=== PATIENT | male | born 1980 | race Caucasian/White ===

== ENCOUNTER 2022-09-29 11:51 | Outpatient (CLI) | payer BC, SELFPAY ==
[2022-09-29 12:39] LABS: Alanine Aminotransferase 48 U/L (16-63); Albumin Level 4.7 g/dL (3.4-5.0); Alkaline Phosphatase 49 U/L (46-116); Aspartate Amino Transferase 19 U/L (15-37); Bilirubin Direct 0.1 mg/dL (0-0.2); Bilirubin,Total 0.4 mg/dL (0.00-1.00); Total Protein 8.1 g/dL (6.4-8.2)
== END 2022-09-29 11:52 | disposition home or self-care (01) ==
LOC: CHSLAB 11:57
PROVIDERS: PCP Family Medicine
DX: Z79.899 Other long term (current) drug therapy (principal)
CPT/HCPCS: 36415; 80076

== ENCOUNTER 2022-11-27 10:12 | Outpatient (CLI) | payer BC, SELFPAY ==
[2022-11-27 10:57] LABS: Alanine Aminotransferase 36 U/L (16-63); Albumin Level 4.2 g/dL (3.4-5.0); Alkaline Phosphatase 67 U/L (46-116); Aspartate Amino Transferase 13 U/L (15-37); Bilirubin Direct 0.1 mg/dL (0-0.2); Bilirubin,Total 0.4 mg/dL (0.00-1.00); Total Protein 7.7 g/dL (6.4-8.2)
== END 2022-11-27 10:13 | disposition home or self-care (01) ==
DX: Z79.899 Other long term (current) drug therapy (principal)
CPT/HCPCS: 36415; 80076

== ENCOUNTER 2022-12-29 09:21 | Outpatient (CLI) | payer BC, SELFPAY ==
[2022-12-29 10:26] LABS: Alanine Aminotransferase 39 U/L (16-63); Albumin Level 4.2 g/dL (3.4-5.0); Alkaline Phosphatase 70 U/L (46-116); Aspartate Amino Transferase 14 U/L (15-37); Bilirubin Direct 0.1 mg/dL (0-0.2); Bilirubin,Total 0.5 mg/dL (0.00-1.00); Total Protein 7.5 g/dL (6.4-8.2)
== END 2022-12-29 09:22 | disposition home or self-care (01) ==
LOC: CHSLAB 09:25
DX: Z79.899 Other long term (current) drug therapy (principal)
CPT/HCPCS: 36415; 80076

== ENCOUNTER 2023-04-30 10:01 | Outpatient (CLI) | payer BC, SELFPAY ==
[2023-04-30 10:26] LABS: Creatinine Urine 24.47 mg/dL (40-278); Hemoglobin A1C 5.2 % (<5.7)
[2023-04-30 10:36] LABS: MALB Creatinine Ratio 53.1 mg/g (0-30); Microalbumin Urine Random < 13.0 mg/L
[2023-04-30 11:15] LABS: Alanine Aminotransferase 37 U/L (16-63); Albumin Level 4.2 g/dL (3.4-5.0); Alkaline Phosphatase 45 U/L (46-116); Anion Gap 9 mmol/L (8-16); Aspartate Amino Transferase 17 U/L (15-37); Bilirubin,Total 0.5 mg/dL (0.00-1.00); Blood Urea Nitrogen 14 mg/dL (7-18); Calcium 9.3 mg/dL (8.5-10.1); Carbon Dioxide 30 mmol/L (21-32); Chloride 105 mmol/L (98-108); Cholesterol 196 mg/dL (0-200); Estimated Glomerular Filt Rate > 60; Glucose 85 mg/dL (70-99); HDL Direct 43 mg/dL (40-60); LDL Cholesterol Calculated 114 mg/dL (<130); Osmolality Calculated 297 mOsm/kg (285-295); Potassium 4.4 mmol/L (3.5-5.1); Sodium 144 mmol/L (136-145); Total Protein 7.6 g/dL (6.4-8.2); Triglycerides 196 mg/dL (0-150); Uric Acid 4.8 mg/dL (3.5-7.2)
[2023-05-04 13:40] LABS: Valproic Acid 73.7 mg/L (50.0-100.0)
== END 2023-04-30 10:02 | disposition home or self-care (01) ==
LOC: CHSLAB 10:04
PROVIDERS: PCP Family Medicine; Visit Provider Family Medicine
DX: M10.9 Gout, unspecified (principal); G40.909 Epilepsy, unspecified, not intractable, without status epilepticus; E11.9 Type 2 diabetes mellitus without complications
CPT/HCPCS: 36415; 80053; 80061; 80164; 82043; 83036; 84550

== ENCOUNTER 2024-08-01 13:33 | Outpatient (CLI) | payer BC, SELFPAY ==
[2024-08-01 13:52] LABS: Basophils Absolute Auto 0.03 K/mm3 (0.00-0.10); Basophils Percent Auto 0.4 % (0.0-1.0); Eosinophils Absolute Auto 0.03 K/mm3 (0.02-0.50); Eosinophils Percent Auto 0.4 % (1.0-6.0); Hemoglobin 16.1 g/dL (14.0-18.0); Immature Granulocyte Absolute 0.03 K/mm3 (0.00-0.00); Immature Granulocyte Percent A 0.4 % (0.0-0.0); Lymphocytes Percent Auto 34.5 % (18.0-42.0); Mean Corpuscular HGB Conc 33.5 g/dL (32-36); Mean Corpuscular Hemoglobin 29.4 pg (27.0-31.0); Mean Corpuscular Volume 87.8 fL (78.0-102.0); Monocytes Percent Auto 7.5 % (2.0-11.0); Neutrophils Absolute Auto 3.78 K/mm3 (1.70-7.20); Neutrophils Percent Auto 56.8 % (50.0-70.0); Platelet Count Result 188 K/mm3 (150-420); Red Blood Count 5.47 M/mm3 (4.70-6.10); White Blood Count 6.7 K/mm3 (4.8-10.8)
[2024-08-01 14:28] LABS: Rheumatoid Factor Screen Negative (Negative)
[2024-08-01 14:51] LABS: Erythrocyte Sedimentation Rate 2 mm/hr (0-15)
[2024-08-01 14:57] LABS: Alanine Aminotransferase 41 U/L (16-63); Albumin Level 4.3 g/dL (3.4-5.0); Alkaline Phosphatase 46 U/L (46-116); Anion Gap 6 mmol/L (4-12); Aspartate Amino Transferase 16 U/L (15-37); Bilirubin,Total 0.7 mg/dL (0.00-1.00); Blood Urea Nitrogen 15 mg/dL (7-18); Calcium 9.4 mg/dL (8.5-10.1); Carbon Dioxide 33 mmol/L (21-32); Chloride 102 mmol/L (98-108); Cholesterol 234 mg/dL (0-200); Estimated Glomerular Filt Rate > 60; Free T4 Free Thyroxine 0.81 ng/dL (0.76-1.46); Glucose 133 mg/dL (70-99); HDL Direct 46 mg/dL (40-60); LDL Cholesterol Calculated 166 mg/dL (<130); Osmolality Calculated 294 mOsm/kg (285-295); Potassium 4.6 mmol/L (3.5-5.1); Sodium 141 mmol/L (136-145); Thyroid Stimulating Hormone 2.47 uIU/mL (0.36-3.74); Total Protein 7.6 g/dL (6.4-8.2); Triglycerides 112 mg/dL (0-150); Vitamin B12 1124 pg/mL (193-986)
[2024-08-04 01:38] LABS: Vitamin D 25 Hydroxy 14 ng/mL (30-100)
== END 2024-08-01 13:34 | disposition home or self-care (01) ==
LOC: CHSLAB 13:37
PROVIDERS: PCP Family Medicine
DX: L30.9 Dermatitis, unspecified (principal)
CPT/HCPCS: 36415; 80053; 80061; 82306; 82607; 84439; 84443; 85025; 85652; 86038; 86039; 86430

== ENCOUNTER 2024-08-11 12:33 | Outpatient (CLI) | payer BC, SELFPAY ==
[2024-08-15 21:23] LABS: Almond (F20) IgE <0.10 kU/L; Codfish (F3) IgE <0.10 kU/L; Codfish (F3) IgE Class 0; Peanut (F13) IgE <0.10 kU/L; Peanut (F13) IgE Class 0; Sesame Seed <0.10 kU/L; Shrimp (F24) IgE <0.10 kU/L
[2024-08-15 21:24] LABS: Cashew Nut (F202) IgE <0.10 kU/L; Cashew Nut (F202) IgE Class 0; Cow's Milk (F2) IgE <0.10 kU/L; Cow's Milk (F2) IgE Class 0; Egg White (F1) IgE <0.10 kU/L; Egg White (F1) IgE Class 0; Hazelnut (F17) IgE <0.10 kU/L; Hazelnut (F17) IgE Class 0; Salmon (F41) IgE <0.10 kU/L; Salmon (F41) IgE Class 0; Scallop (F338) IgE <0.10 kU/L; Scallop (F338) IgE Class 0; Soybean (F14) IgE <0.10 kU/L; Soybean (F14) IgE Class 0; Tuna (F40) <0.10 kU/L; Tuna (F40) Class 0; Walnut (F256) IgE <0.10 kU/L; Walnut (F256) IgE Class 0; Wheat (F4) IgE <0.10 kU/L; Wheat (F4) IgE Class 0
[2024-08-17 03:38] LABS: Immunoglobulin A 87 mg/dL (47-310); TTG IGA AB <1.0 U/mL
== END 2024-08-11 12:34 | disposition home or self-care (01) ==
LOC: CHSLAB 12:35
PROVIDERS: PCP Family Medicine; Visit Provider Family Medicine
DX: R21 Rash and other nonspecific skin eruption (principal)
CPT/HCPCS: 36415; 82784; 83516; 86003

== ENCOUNTER 2024-10-11 10:20 | Outpatient (CLI) | payer BC, SELFPAY | END 2024-10-11 10:21 | disposition home or self-care (01) | LOC: CHSLAB 10:21 | PROVIDERS: PCP Family Medicine; Visit Provider Family Medicine | DX: R79.89 Other specified abnormal findings of blood chemistry (principal) | CPT/HCPCS: 36415; 82652 ==

== ENCOUNTER 2025-10-15 07:57 | Outpatient (CLI) | payer BC, SELFPAY ==
--- NOTE | ~2025-10-15 | CT_ITS ---
EXAMINATION: CT abdomen pelvis wo con DATE: 10/15/2025 09:20 INDICATION: Abdominal pain. Details not available. Patient is a poor historian. TECHNIQUE: Computed tomography (CT) of the abdomen and pelvis was performed without intravenous contrast after failure of the first injection site. Patient refused further attempts.. Automated exposure control and iterative reconstruction technique were employed. The dose-length product was 821.82 mGy- cm. COMPARISON: Ultrasound kidneys dated 12/16/2015. FINDINGS: Lung bases do not show acute findings. No focal lesions of liver and spleen. The gallbladder, pancreas do not show acute findings. No calculi or obstruction of the upper urinary tract. No evidence of bladder calculus. No fluid collections within the pelvis. The appendix is not distinctly visible. Mild fecal impaction of the colon. Significant degenerative disc disease at L5-S1 level. IMPRESSION: 1. No definite acute findings in the upper abdomen and pelvis. 2. Mild diffuse fecal impaction of the colon. 3. Significant degenerative disc disease at L5-S1 level. Reviewed, dictated and finalized at location T. T MAINTENANCE TECHNICIAN
--- OUTSIDE RECORDS SUMMARY | 2025-10-15 08:05 | XMS_ITS | Patient Health Record ---
Author Organization [facility] Address [address] [place], [place] [id number] Care Team Providers Care Commissary Steward Name Role Phone BLAINE RAMOS Unavailable [phone] Reason For Referral No Information Medications Medication SIG (Take, Route, Frequency, Duration) Notes Start Date End Date Status 24 HR divalproex sodium 500 MG Extended Release Oral Tablet [Depakote] ORAL 24 HR divalproex sodium 500 MG Extended Release Oral Tablet [Depakote]Original [id number] HR divalproex sodium 500 MG Extended Release Oral Tablet [Depakote] *Reorder from [employer] for eRx and Interaction Christina 12/25/2013 Active Allopurinol 100 MG Oral Tablet ORAL allopurinol 100 MG Oral TabletOriginal Medicationallopurinol 100 MG Oral Tablet *Reorder from [employer] for eRx and Interaction Alerts* 12/25/2013 Active clotrimazole 10 MG/ML Topical Solution CUTANEOUS clotrimazole 10 MG/ML Topical SolutionOriginal Medicationclotrimazole 10 MG/ML Topical Solution *Reorder from [employer] for eRx and Interaction Alerts* 06/22/2014 Active Social History Social History Additional Details Category Social Info Options Details Migrated Social History Migrated Social History History of tobacco use : , Smoking Status : Never smoked Plan Of Treatment No Information Insurance Providers Payer Name Payer Address Payer Phone Subscriber Number Group Number Insured Name Patient Relationship to Insured Coverage Start Date Coverage End Date [facility] ([facility] ATTN CLAIMS [address] [place] [address] [id number] DASIA ESQUIVEL Self - patient is the insured
--- OUTSIDE RECORDS SUMMARY | 2025-10-15 08:05 | XMS_ITS | Clinical Summary ---
Author Organization [facility] Address [facility] [place] [address] Care Team Providers Care Application Specialist Name Role Phone Amauri Santos MD Primary Care Provider Allergies Active Allergy Reactions Criticality Noted Date Comments Amoxicillin Hyperactive 03/07/2019 Medications diazepam 20 MG Gel INSERT 20MG INTO THE RECTUM D PRN FOR SEIZURES 1 9 Active divalproex EC (DEPAKOTE) 500 MG tablet 5 Active Glucose Blood test strip daily. 6 Active Lancets (ONETOUCH ULTRASOFT) lancets 6 Active fluconazole (DIFLUCAN) 150 MG tabletIndication s:Dysuria Take 1 tab today and repeat in 72 hours if needed. 2 tablet 1 Active Nystatin PowderIndication s:Yeast dermatitis 1 Application by Does not apply route daily. 1 each 1 Active Glucose Blood (CONTOUR TEST) test stripIndications :Heterozygous factor V Leiden mutation (HHS/HCC) 1 strip by Other route daily. 100 strip 2 Active allopurinol (ZYLOPRIM) 300 MG tabletIndication s:Chronic gout without tophus, unspecified cause, unspecified site Take 1 tablet (300 mg total) by mouth twice a week. 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 Unsure that he still needs the medication, but is stable at this time. Denies any flares since last visit. Assessment & Plan (09/10/2022 11:02 AM CDT): Discussed utilizing blood work or dropping down to 1 tab weekly and monitor for flares. Mom would like to continue as is for now. Assessment & Plan (04/03/2021 9:01 AM CDT): Notify office when ready for labs Cont regimen. Resolved Problems Problem Noted Date Diagnosed Date Resolved Date Encounter for preventive health examination 05/13/2015 08/02/2020 Immunizations Immunization Administration Dates Next Due DT (Generic) 08/22/1986,08/22/1982,1981 ,1981 Opv 08/22/1986,08/22/1982,1981 ,1981 Td 07/03/1998 Family History Medical History Relation Comments factor 5 Mother Relation Status Comments Father Alive Mother Alive Social History Tobacco Use Types Packs/Day Years Used Date Smoking Tobacco: Never Smokeless Tobacco: Never Alcohol Use Standard Drinks/Week Comments No 0 (1 standard drink = 0.6 oz pur e alcohol) AUDIT-C Answer Date Recorded Frequency of Alcohol Consumption Never 03/07/2019 Average Number of Drinks Not on file 019 Frequency of Binge Drinking Not on file 02/20 Sex and Gender Information Value Date Recorded Sex Assigned at Not on file Legal Sex Male 10:26 PM CDT Gender Identity Not on file Sexual Orientation Not on file Last Filed Vital Signs Vital Sign Reading Time Taken Comments Blood Pressure 118/60 06/27/2021 10:15 AM CDT Pulse 76 06/27/2021 10:15 AM CDT Temperature 37.2 C (98.9 F) 06/27/2021 10:15 AM CDT Respiratory Rate 20 06/27/2021 10:15 AM CDT Oxygen Saturation 98% 06/27/2021 10:15 AM CDT Inhaled Oxygen Concentration - - Weight 79.4 kg (175 lb) 06/27/2021 10:15 AM CDT per mother Height 172.7 cm (5' 8) 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 Body Mass Index 26.61 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 Plan of Treatment Health Maintenance Due Date Last Done Comments Meningococcal Vaccine (1 - Risk 2-dose series) 1983 Meningococcal B Vaccine (1 of 4 - Increased Risk) 1991 DTaP, Tdap and Td Vaccines (2 - Tdap) 07/04/1998 07/03/1998, 08/22/1986, 08/22/1982, Additional history exists Hepatitis B Vaccines (1 of 3 - 19+ 3-dose series) 2000 HPV Vaccines (1 - 3-dose SCDM series) 2008 Annual Physical 03/07/2020 03/07/2019 COVID-19 Vaccine ( - 2024- season) 2025 Influenza Adult (#1) 2025 Hepatitis C Completed 08/04/2019 Hepatitis A Vaccines Aged Out No long er eligible based on patient's age to complete this topic Pneumococcal Vaccine: Pediatrics (0 to 5 Years) and At-Risk Patients (6 to 49 Years) Aged Out No longer eligible based on patient's age to complete this topic RSV Immunizations Under 20 Months Aged Out No longer eligible based on patient's age to complete this topic Procedures Procedure Name Priority Date/Time Associated Diagnosis Comments HEPATITIS C ANTIBODY Routine 08/04/2019 Exposure to hepatitis C from Last 3 Months or Most Recently Relevant to Health Maintenance Results * HEPATITIS C ANTIBODY (08/04/2019) 08/04/2019 [facility]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 [address] PCP - General FAMILY PRACTICE 05/08/23
[2025-10-15 08:21] LABS: Hematocrit 51.5 % (40.0-54.0); Hemoglobin 16.3 g/dL (14.0-18.0); Immature Granulocyte Percent A 0.2 % (0.0-0.0); Lymphocytes Absolute Auto 1.90 K/mm3 (1.10-4.50); Mean Corpuscular HGB Conc 31.7 g/dL (32-36); Mean Corpuscular Hemoglobin 29.1 pg (27.0-31.0); Mean Corpuscular Volume 91.8 fL (78.0-102.0); Nucleated Red Blood Cells Absolute Auto 0.00 K/mm3 (0.00-0.00); Nucleated Red Blood Cells Perc 0.0 % (0-0.0); Platelet Count Result 163 K/mm3 (150-420); Red Blood Count 5.61 M/mm3 (4.70-6.10); White Blood Count 5.5 K/mm3 (4.8-10.8)
[2025-10-15 08:49] LABS: Alanine Aminotransferase 27 U/L (6-50); Albumin Level 5.0 g/dL (3.5-5.1); Alkaline Phosphatase 42 U/L (38-126); Anion Gap 12 mmol/L (4-12); Aspartate Amino Transferase 30 U/L (17-59); Bilirubin,Total 0.6 mg/dL (0.2-1.3); Blood Urea Nitrogen 17 mg/dL (9-20); Calcium 9.8 mg/dL (8.4-10.2); Carbon Dioxide 27 mmol/L (22-30); Chloride 103 mmol/L (98-107); Cholesterol 224 mg/dL (0-200); Estimated Glomerular Filt Rate > 60; Glucose 98 mg/dL (65-110); HDL Direct 48 mg/dL; Osmolality Calculated 295 mOsm/kg (285-295); Potassium 4.5 mmol/L (3.4-5.0); Sodium 142 mmol/L (137-145); Total Protein 8.1 g/dL (6.3-8.2); Triglycerides 140 mg/dL (<150)
[2025-10-15 08:50] LABS: Hemoglobin A1C 5.5 % (<5.7)
== END 2025-10-15 07:58 | disposition home or self-care (01) ==
LOC: CHSIMG 07:58
PROVIDERS: PCP Family Medicine; Visit Provider Family Medicine
DX: E11.9 Type 2 diabetes mellitus without complications (principal); R10.9 Unspecified abdominal pain; K56.41 Fecal impaction; M51.379 Other intervertebral disc degeneration, lumbosacral region without mention of lumbar back pain or lower extremity pain
CPT/HCPCS: 36415; 74176; 80053; 80061; 83036; 85025